=== PATIENT | male | born 1975 | race Caucasian/White ===

== ENCOUNTER → 2018-03-19 13:21 | Outpatient (CLI) | payer BC, SELFPAY ==
--- NOTE | 2018-03-19 13:33 | MR_ITS ---
MR cervical spine wo con, MR 3-d myelogram/MRCP Ordering Physician: Kyler Phipps MD Patient Age: 42 years: Male HISTORY: ITS.REASON: C7 RADICULOPATHY C7 radiculopathy. Left-sided neck pain left arm numbness and left hand 2 months. TECHNIQUE: Sagittal STIR, T1, T2, axial T1 and T2. On 1.5T Siemens wide bore MRI. 3-D MR myelogram image set obtained & performed on MRI workstation. Additional sagittal thin section T2 weighted dataset obtained from this latter acquisition as well (---76 CPT) COMPARISON : No prior studies FINDINGS Cervical vertebral bodies are intact with normal alignment. Facets with normal relationships. Cranial cervical junction is normal. The cervical cord is normal in caliber and signal and there is a generous volume cervical osseous spinal canal The disc spaces are well hydrated & well-maintained throughout.. The neural foramen widely patent with no encroachment. Only note minor disc prominence to left at C5/6.. Mild leftward disc bulge//minor broad-based disc protrusion to the left which only slightly flattens & effaces the thecal sac to the left at C5/6 level, as seen on axial image 39, & 38.,. Unimpressive but noted. No associated foraminal encroachment Otherwise unremarkable MR C-spine A tiny perineural cyst measuring 3 x 4 mm is incidentally noted posterior aspect of the neural foramen right on axial image 44. Incidental observation of no clinical significance . Soft tissues and neck with no significant findings. Mild to moderate posterior cervical nodes noted towards upper C-spine 3-D MR myelogram image set shows satisfactory appearance to the thecal sac. Generous volume thecal sac with no prominent epidural indentation only question very subtle additional upon the anterior left thecal sac at C5/6 level. The initial nerve root sleeves are seen bilaterally and appear symmetric appearing including normal filling of the nerve root sleeves to the left at C5, C6 and C7.. IMPRESSION...... No prominent findings.. Only Minor observation C5-C6: At C5/6 noted disc mild prominence the left, mildly effacing thecal sac to the left. This reflects mild leftward disc bulge, or minor broad-based protrusion to the left which slightly flattened & minimally effaces the thecal sac to the left. Unimpressive but noted. Otherwise basically unremarkable MR C-spine.
== END ==
PROVIDERS: Family Provider Family Medicine; PCP Family Medicine; Visit Provider Internal Medicine Adolescent Medicine
DX: M54.12 Radiculopathy, cervical region (principal)
CPT/HCPCS: 72141; 76376

== ENCOUNTER → 2018-10-12 11:07 | Outpatient (CLI) | payer BC, SELFPAY ==
[2018-10-12 11:12] LABS: Adenovirus F 40/41, stool Not Detected (NotDetected); Campylobacter Not Detected (NotDetected); Clostridium Difficile A/B, PCR Not Detected (NotDetected); Cryptosporidium Not Detected (NotDetected); Cyclospora Cayetanesis Not Detected (NotDetected); Entamoeba histolytica Not Detected (NotDetected); Enteroaggregative E coli Not Detected (NotDetected); Enteropathogenic E coli Not Detected (NotDetected); Enterotoxigenic E coli Not Detected (NotDetected); Giardia lamblia Not Detected (NotDetected); Norovirus Not Detected (NotDetected); Plesimonas Shigalloides, PCR Not Detected (NotDetected); Rotavirus A Not Detected (NotDetected); Salmonella, PCR Not Detected (NotDetected); Sapovirus Not Detected (NotDetected); Shiga-like toxin E coli Not Detected (NotDetected); Shigella Enterovasive E coli Not Detected (NotDetected); Vibrio Cholerae Not Detected (NotDetected); Vibrio, PCR Not Detected (NotDetected); Yersinia Entercolitica, PCR Not Detected (NotDetected)
[2018-10-12 15:36] LABS: Astrovirus Detected (NotDetected)
== END ==
PROVIDERS: PCP Internal Medicine Adolescent Medicine; Visit Provider Internal Medicine Adolescent Medicine
DX: A09 Infectious gastroenteritis and colitis, unspecified (principal); R19.7 Diarrhea, unspecified; R10.9 Unspecified abdominal pain; A08.32 Astrovirus enteritis
CPT/HCPCS: 87507

== ENCOUNTER 2019-02-16 16:00 | Outpatient (RCR) | payer OTHER, SELFPAY ==
--- NOTE | 2019-01-18 16:41 | HMH.PTOPEV ---
PT Outpatient Evaluation Rehab PT Outpatient Evaluation Start: 01/18/19 15:32 Freq: Status: Active Protocol: Document 01/18/19 16:02 PDESEROUX (Rec: 01/18/19 16:41 [email or web address] [id number]) Electronically Signed By Kevan Graham, PT 01/18/19 16:02 Outpatient Therapy Subjective History Subjective History Pt. is a 43 year old male who presents to outpatient PT for complaints of subacute and traumatic bilateral LB P! since 12/29/18 . 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 in his LB. Pt. denies feeling/hearing a pop, but did report 1 incident of P! shooting down his RLE. Pt. denies RLE symptoms since then. Pt. reported the muscle relaxer did not provide symptom relief, but the steroid pack seemed to help. Pt. denies having recent diagnostic imaging nor injections for current pathology. Current medications include Ibuprofen. PMH includes acid reflux. Chief Complaint Pain,Stiff Symptom Type Dull,Other Symptoms Relieved By Rest/Positioning,OTC Meds Symptoms Aggravated By Sitting,Standing,Bending/ Stooping,Twisting,Lifting Prior Functional Limitations None Current Functional Limitations Lifting,Sleeping,Standing, Sitting Symptom Description Constant but Variable Level of pain today (0-10) 1 Pain scale - at its best (0-10) 1 Pain scale - at its worst (0-10) 10 Lumbopelvic Eval Posture Thoracic Spine Posture Standing Position Neutral Lumbar Spine Posture Standing Position Neutral Assistive device Assistive Devices None / NA Gait Observation General Gait Pattern Observation No Deviations/Normal Palapation tenderness bilateral thoracic spinal tenderness No lumbar spinal tenderness Yes paraspinal tenderness Yes buttock tenderness No tenderness over symphysis pubis No Lumbar/Sacral Palpation Findings Tenderness Lumbar/Sacral Palpation Overall Comment grade 2 +TTP to bilateral L3- L5 Accessory Movement L-spine Vertebrae Accessory Movements Central P/A [place],Right P/A that Elicit Symptoms
== END 2019-02-23 13:00 | disposition home or self-care (01) ==
LOC: PT.CARL 16:00
PROVIDERS: Visit Provider Internal Medicine Adolescent Medicine
DX: S39.012S Strain of muscle, fascia and tendon of lower back, sequela (principal)
CPT/HCPCS: 97010; 97012; 97014; 97110; 97163; G0283

== ENCOUNTER → 2019-07-08 15:59 | Outpatient (CLI) | payer OTHER, SELFPAY ==
--- NOTE | 2019-07-08 16:03 | MR_ITS ---
PROCEDURE: MR LUMBAR SPINE WO CON CLINICAL INDICATION: LUMBOSACRAL PAIN Low back pain COMPARISON: SPC[facility]WO MR cervical spine wo con from 03/19/2018 TECHNIQUE: Standard multiplanar multiecho sequences are performed without contrast. 3-D MIP and myelographic images are also rendered and reviewed FINDINGS: There is normal alignment. The spinal cord ends at the L1 level. L1-L2 L2-L3 and L3-L4 have an unremarkable appearance. There is degenerative disc disease at L4-5 with bulging disc and a small broad-based central disc protrusion causing bilateral lateral recess narrowing as well as narrowing of the canal at 10 mm. This protruding disc is very slightly eccentric toward the left. There is moderate bilateral lateral recess and foraminal narrowing with associated facet and ligamentum hypertrophy. The disc abuts both L5 nerve roots slightly greater on the left L5-S1: Unremarkable. IMPRESSION: There is degenerative disc disease at L4-5 with bulging disc and a small broad-based central disc protrusion causing bilateral lateral recess narrowing as well as narrowing of the canal at 10 mm. This protruding disc is very slightly eccentric toward the left. There is moderate bilateral lateral recess and foraminal narrowing with associated facet and ligamentum hypertrophy. The disc abuts both L5 nerve roots slightly greater on the left Dictated by: Subhash Lo MD 07/09/2019 18:44 Electronically signed by Subhash Lo MD in [place] 07/09/2019 18:44
== END ==
PROVIDERS: PCP Nurse Practitioner Family; Visit Provider Nurse Practitioner Family
DX: M54.5 Low back pain (principal)
CPT/HCPCS: 72148; 76376

== ENCOUNTER → 2020-03-17 11:24 | Outpatient (CLI) | payer BC, SELFPAY | PROVIDERS: PCP Internal Medicine Adolescent Medicine; Visit Provider Nurse Practitioner Family | DX: Z20.828 Contact with and (suspected) exposure to other viral communicable diseases (principal); U07.1 COVID-19 | CPT/HCPCS: U0003 ==

== ENCOUNTER 2020-09-25 21:08 | Emergency (ER) | payer BC, SELFPAY ==
[2020-09-25 21:56] VITALS: BP 155/98; PULSE 92; RESP 18; TEMP 36.9; O2SAT 99; BMI 27.3
--- NOTE | 2020-09-25 22:11 | CT_ITS ---
PROCEDURE: CT HEAD/BRAIN WO CON CLINICAL INDICATION: neck numbness tightness Pain, headache COMPARISON: No exams were available for comparison TECHNIQUE: Axial images obtained. All CT scans at the facility use one or more dose reduction, viz: automated exposure control, ma/kV adjustment per patient size (including targeted exams where dose is matched to indication, i.e. head), or iterative reconstruction technique. FINDINGS: No midline shift, mass effect, intracranial hemorrhage, hydrocephalus, or extra-axial fluid collection is evident. The calvarium has an unremarkable appearance. No mastoid effusion. No sinus air-fluid level. IMPRESSION: No acute intracranial finding Dictated by: Subhash Lo MD 09/26/2020 06:27 Subhash Lo MD in [place] 09/26/2020 06:27
--- NOTE | 2020-09-25 22:11 | CT_ITS ---
PROCEDURE: CT CERVICAL SPINE WO CON CLINICAL INDICATION: neck numbness tightness Neck pain, jaw locking a COMPARISON: No exams were available for comparison TECHNIQUE: Axial images obtained with sagittal and coronal reformats. All CT scans at the facility use one or more dose reduction, viz: automated exposure control, ma/kV adjustment per patient size (including targeted exams where dose is matched to indication, i.e. head), or iterative reconstruction technique. Axial spiral CT scanning performed of the cervical spine beginning at the base of the skull and continuing to the upper T-spine. 3-D multiplanar reconstruction with 3-D manipulation of volumetric data set in image rendering was completed by the radiologist and/or technologist with the supervision of the radiologist on independent workstation. FINDINGS: No fracture nor subluxation is evident. Normal prevertebral soft tissues. Facets, neural foramen and vertebral bodies intact and unremarkable. Normal C1/C2 relationships. Apices of lungs are clear with no acute findings. Scattered small nodes are present in the neck. There is straightening of the cervical lordosis nonspecific and may be due to positioning or muscle spasm. IMPRESSION: 1. Straightening of cervical lordosis. 2. No fracture or dislocation. No significant degenerative change or canal stenosis. Dictated by: Subhash Lo MD 09/26/2020 06:30 Subhash Lo MD in [place] 09/26/2020 06:30
[2020-09-25 22:31] LABS: Basophils # 0.1 K/mm3 (0-0.2); Eosinophils # 0.1 K/mm3 (0.0-0.4); Eosinophils % 1.1 % (0.1-12.0); Hematocrit 45.3 % (42.0-52.0); Hemoglobin 14.8 g/dL (14.1-18.0); Lymphocytes # 3.1 K/mm3 (0.7-4.5); Lymphocytes % 28.6 % (10-50); Mean Corpuscular HGB Conc 32.6 g/dL (31.8-35.4); Mean Corpuscular Hemoglobin 28.5 pg (27.0-31.2); Mean Corpuscular Volume 87.6 fl (80-94); Mean Platelet Volume 8.6 fl (7.4-10.4); Monocytes # 0.6 K/mm3 (0.1-1.0); Monocytes % 5.2 % (1.7-9.3); Neutrophils # 6.9 K/mm3 (1.8-7.8); Neutrophils % 64.2 % (37.0-80.0); Platelet Count 278 K/mm3 (142-424); Red Blood Count 5.17 M/mm3 (4.60-6.20); Red Cell Distribution Width 13.3 % (11.5-17.5); White Blood Count 10.8 K/mm3 (4.8-10.8)
[2020-09-25 22:36] LABS: Alanine Aminotransferase 21 U/L (12-78); Albumin Level 5.1 g/dl (3.5-5.0); Albumin/Globulin Ratio 1.6 (1.1-1.8); Alkaline Phosphatase 79 U/L (38-126); Anion Gap 15.4 mEq/L (5-15); Aspartate Amino Transferase 35 U/L (17-59); Bilirubin,Total 0.4 mg/dl (0.2-1.3); Blood Urea Nitrogen 17 mg/dl (9-20); Calcium 9.7 mg/dl (8.4-10.2); Carbon Dioxide 27 mmol/L (22.0-30.0); Chloride 104 mmol/L (98-107); Creatinine Clearance Estimated 137 mL/min (50-200); Estimated Glomerular Filt Rate 106 ml/min (>60); GFR (African American) 128 ML/MIN (>60); Globulin 3.2 g/dL (1.3-3.2); Glucose 107 mg/dl (74-100); Potassium 4.4 mmoL/L (3.5-5.1); Sodium 142 mmol/L (136-145); Total Protein,Serum 8.3 g/dl (6.3-8.2)
--- NOTE | 2020-09-25 22:38 | CT_ITS ---
Procedure: CT ANGIO NECK CLINICAL HISTORY: throat and neck numbness, spasm Headache, pain, neck pain, headache, feels like jaw is locking COMPARISON: CT CT ANGIO HEAD from 09/25/2020 TECHNIQUE: IV Contrast: 100ml Isovue 370 Axial images obtained with sagittal and coronal reformats. All CT scans at the facility use one or more dose reduction, viz: automated exposure control, ma/kV adjustment per patient size (including targeted exams where dose is matched to indication, i.e. head), or iterative reconstruction technique. FINDINGS: CTA neck: Unremarkable appearing aortic arch and great vessels. The carotids and vertebrals have an unremarkable appearance. No stenosis, occlusion, or ulceration. CTA head: No aneurysm, intracranial occlusive changes, AVM, or enhancing lesion. Delayed images show no obvious sinus thrombosis IMPRESSION: Negative CTA of the head and neck. Dictated by: Subhash Lo MD 09/26/2020 09:39 Subhash Lo MD in [place] 09/26/2020 09:39
[2020-09-25 22:43] LABS: C-Reactive Protein 1.1 mg/L (0-4)
[2020-09-25 22:50] LABS: Troponin I < 0.01 ng/ml (0.00-0.034)
[2020-09-25 22:55] LABS: Procalcitonin 0.041 ng/mL (0.0-2.0)
[2020-09-25 22:57] LABS: Erythrocyte Sedimentation Rate 5 mm/hr (0-15)
--- NOTE | 2020-09-25 23:11 | PC.NURSE ---
pt returned from CT scan
[2020-09-25 23:23] VITALS: BP 130/91; PULSE 73; RESP 17; O2SAT 99
[2020-09-25 23:30] VITALS: BP 130/94; PULSE 70
[2020-09-26] VITALS: BP 139/101; PULSE 66; O2SAT 99
--- NOTE | 2020-09-26 00:10 | HMH.EDNEU ---
ED Disposition Clinical Impression: Facial numbness Disposition: Home, Self-Care Condition on Discharge: Good Instructions: DI for High Blood Pressure Additional Instructions: see pcp for follow up and about bp Referrals: Kyler Phipps MD [Primary Care Provider] - - Critical Care Critical Care Time: No Attestation: On 09/25/20, the high probability of a clinically significant, sudden or life threatening deterioration of the following system(s) required my full and direct attention, intervention and personal management. The time I documented below is in addition to time spent performing reported procedures but includes the following listed in this critical care notation. Medical Decision Making - Medical Records Medical records reviewed: Yes: I reviewed the patient's medical records. - Eric Inquiry Pt receiving controlled substance: No Vital Signs: 09/25/20 21:56 Temperature 98.4 F Temperature Source Oral Pulse Rate [Right] 92 H Respiratory Rate 18 Blood Pressure [Left Arm] 155/98 H Blood Pressure Mean [Left Arm] 117 Blood Pressure Source [Left Arm] Automatic Cuff 02 Sat by Pulse Oximetry 99 Oxygen Delivery Method Room Air - Lab Data Lab results reviewed: Yes: I reviewed the patient's lab results. Lab Results 09/25/20 22:15: WBC 10.8, RBC 5.17, Hgb 14.8, Hct 45.3, MCV 87.6, MCH 28.5, MCHC 32.6, RDW 13.3, Plt Count 278, MPV 8.6, Neut % (Auto) 64.2, Lymph % (Auto) 28.6, [place] % (Auto) 5.2, Eos % (Auto) 1.1, Baso % (Auto) 1.0, Neut # (Auto) 6.9, Lymph # (Auto) 3.1, [place] # (Auto) 0.6, Eos # (Auto) 0.1, Baso # (Auto) 0.1, ESR 5 09/25/20 22:15: Sodium 142, Potassium 4.4, Chloride 104, Carbon Dioxide 27, Anion Gap 15.4 H, BUN 17, Creatinine 0.80, Estimated Creat Clear 137, Estimated GFR 106, Est GFR ( Amer) 128, Glucose 107 H, Calcium 9.7, Total Bilirubin 0.4, AST 35, ALT 21, Alkaline Phosphatase 79, Troponin I < 0.01, C-Reactive Protein 1.1, Total Protein 8.3 H, Albumin 5.1 H, Globulin 3.2, Albumin/Globulin Ratio 1.6, Procalcitonin 0.041 Result diagrams: 09/25/20 22:15 09/25/20 22:15 Orders (Tests/Meds): ED MEDICATIONS Generic Name Dose Route Start Last Admin Trade Name Freq PRN Reason Stop Dose Admin Sodium Chloride 1,000 mls @ 999 mls/hr 09/25/20 23:30 09/25/20 23:25 Sod Chlor 0.9% 1000ml Bag IV 09/26/20 00:30 999 mls/hr .Q1H1M JHON Administration Discontinued Medications Generic Name Dose Route Start Last Admin Trade Name Freq PRN Reason Stop Dose Admin Iopamidol 100 ml 09/25/20 23:21 09/25/20 23:22 Iopamidol-370 (76%);100ml Bottle IV 09/25/20 23:22 100 ml ONCE ONE Administration Ketorolac Tromethamine 30 mg 09/25/20 23:25 09/25/20 23:25 Ketorolac 30mg/Ml Vial IV 09/25/20 23:26 30 mg ONCE ONE Administration Sodium Chloride 40 ml 09/25/20 23:21 09/25/20 23:22 0.9 % Sodium Chloride 50 Ml Vial IV 09/25/20 23:22 40 ml ONCE ONE Administration Sodium Chloride 10 ml 09/25/20 23:21 09/25/20 23:22 Sodium Chloride 0.9% 10ml Syr (Rad Only) IV 09/25/20 23:22 10 ml ONCE ONE Administration ORDERS Category Date Time Status CT angio head Stat Cat Scan 09/25/20 22:[address] angio neck Stat Cat Scan 09/25/20 22:[address] cervical spine wo con Stat Cat Scan 09/25/20 22:[address] head/brain wo con Stat Cat Scan 09/25/20 22:11 Taken Troponin I Q3H Lab 09/26/20 01:15 Ordered Troponin I Q3H Lab 09/26/20 04:15 Ordered - CT Data CT Scan: Head, C-Spine, Other (cta head/neck) Time Received: 00:[address] Reviewed: Yes: I have viewed the radiologist's interpretation Preliminary Findings: Normal/NAD - Reevaluation(s) Time: 00:16 Reevaluation #1: at baseline Medical Decision Narrative: uncertain as to etiology but at baseline with nl ed eval Neuro HPI - General Chief Complaint: Neuro Symptoms/Deficit Stated Complaint: throat closing up,numbless L Arm Castro Time Seen by Provider: 09/25/20 23:00 Mode o
[2020-09-26 00:29] VITALS: BP 132/94; PULSE 83; RESP 16; TEMP 36.7; O2SAT 100
== END 2020-09-26 00:32 | disposition home or self-care (01) ==
PROVIDERS: Emergency Provider Emergency Medicine; PCP Internal Medicine Adolescent Medicine
DX: M62.838 Other muscle spasm (principal); R51.9 Headache, unspecified; R20.2 Paresthesia of skin
CPT/HCPCS: 70450; 70496; 70498; 72125; 80053; 84145; 84484; 85025; 85651; 86140; 96374; 96375; 99283; Q9967

== ENCOUNTER → 2020-10-19 07:52 | Outpatient (CLI) | payer BC, SELFPAY | PROVIDERS: Visit Provider Internal Medicine Gastroenterology | DX: Z01.812 Encounter for preprocedural laboratory examination (principal); Z11.52 Encounter for screening for COVID-19; Z13.810 Encounter for screening for upper gastrointestinal disorder | CPT/HCPCS: U0003 ==

== ENCOUNTER 2020-10-20 08:00 | Day surgery (SDC) | payer BC, SELFPAY ==
[2020-10-18 16:04] VITALS: BMI 25.1
[2020-10-20] VITALS (8 sets, daily range): BP systolic 99–136; BP diastolic 66–90; PULSE 58–84; RESP 18; TEMP 36.4–36.5; O2SAT 97–100
--- NOTE | 2020-10-20 09:21 | P.PN_ITS ---
[facility] Anesthesia Checklist - Structural Data Admitted From: Home Planned Operative Procedure/s: egd Consent for Planned Operative Procedure(s) Verified: Yes - Airway Assessment C-Spine Mobility Assessed: Yes TMJ Mobility Assessed: Yes Dentition: Good Dentition - Neurological Assessment Level of Consciousness: Awake, Alert, Appropriate - Anesthesia Plan Anesthesia Risk discussed: Yes Anesthesia Plan: Verified ASA Class: II Anesthesia Type: MAC [facility] History I have reviewed the patient's past medical history: Yes Medical History: Denies:: Cancer, Diabetes Mellitus Type 1, Diabetes Mellitus Type 2, Internal Pacemaker, MRSA, Seizures *Have you ever received a pneumonia vaccine?: No *Have you received a flu vaccine this season?: No Anesthesia experience/problems:: none Other Surgeries: No: Pacemaker Amputation: No - *Social History Last grade of school completed: High school graduate Smoking Status: Current every day smoker Tobacco Type: cigarettes # Packs/Day (cigarettes): 1 Alcohol Intake: current Alcohol Intake Frequency:: a few times a month Substance Use Type: denies use *Occupational Status:: employed Housing: house Household Members: significant other, family *Travel in the last 8 weeks: None Family Hx:: No significant family history
--- NOTE | 2020-10-20 09:38 | P.PCN_ITS ---
[facility] Procedure Note Procedure Note:: Upper Endoscopy Procedure Report: Esophagogastroduodenoscopy with cold biopsies and TTS balloon dilation Endoscopost: Jared Garcia II, MD Referring Physician: YOGI Kirk Date of Procedure: October 20, 2020 Equipment: Olympus GIF 190 standard upper endoscope Sedation: MAC sedation Indications: Mr. Lee is a 44-year-old gentleman with globus sensation and dysphagia. He reports some epigastric abdominal discomfort, dyspepsia, belching and bloating. He does state that omeprazole controls his reflux. He has had GERD for almost 20 years and has been on and off antireflux medication/PPI therapy. He reports no nausea but does get some early satiety. He reports dysphagia to primarily breads with some hard swallowing. This has worsened over the last year. He reports regular bowel function. This is his first upper endoscopy Procedure: Prior to the procedure, a history and physical exam was performed, and patient's medications and allergies were reviewed. The risks, benefits and alternatives of the sedation and procedure were discussed with the patient. All questions were answered and informed consent was obtained. The patient was brought to the procedure room. Patient identification and proposed procedure were verified by the physician and the nurse. The patient was placed in a left lateral decubitus position and the scope was passed under direct vision. Throughout the procedure, the patient's blood pressure, pulse, and oxygen saturations were monitored continuously. The upper GI endoscopy was accomplished without difficulty. The patient tolerated the procedure well. Findings: The scope was passed directly into the upper esophagus and advanced to the third portion of the duodenum. The post bulbar duodenum and duodenal bulb were normal with normal mucosa and conniventes. The scope was withdrawn through a normal duodenal bulb and pylorus into the stomach. There was some linear reactive gastropathy of the antrum and body of the stomach. The remainder of the fundus of the stomach was grossly normal. Upon retroflexion there was no hiatal hernia. 2 biopsies were taken in the antrum and along the lesser curvature for histology to rule out gastritis and/or H pylori. The scope was then withdrawn into the esophagus. There was a serrated Z-line and biopsies were taken from the GE junction. There was no evidence of reflux esophagitis, Schatzki's ring or Jiang's esophagus. There were strong tertiary contractions and evidence of moderate esophageal dysmotility. The entire esophagus was dilated to 60 [place]er/20 mm with a TTS hydrostatic balloon. There was some resistance at the cricopharyngeus. The remainder of the esophageal mucosa was normal. Impression: 1. Cricopharyngeal spasm status post dilation to 20 mm 2. Nonerosive GERD with moderate esophageal dysmotility 3. Mild linear reactive gastropathy Plan: I will follow-up the biopsies. 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 I will discuss additional dietary measures and treatment options.
== END 2020-10-20 10:52 | disposition home or self-care (01) ==
LOC: OUTP 08:02
PROVIDERS: PCP Internal Medicine Adolescent Medicine; Visit Provider Internal Medicine Gastroenterology
PROC: 0DJ08ZZ Inspection of Upper Intestinal Tract, Via Natural or Artificial Opening Endoscopic (ICD-10-PCS; CPT 43235; principal; 2020-10-20 09:00)
DX: K21.9 Gastro-esophageal reflux disease without esophagitis (principal); K22.4 Dyskinesia of esophagus; K31.9 Disease of stomach and duodenum, unspecified; J39.2 Other diseases of pharynx; F41.9 Anxiety disorder, unspecified; Z72.0 Tobacco use; Z79.899 Other long term (current) drug therapy
CPT/HCPCS: 43239; 43249; C1726

== ENCOUNTER → 2021-02-14 12:39 | Outpatient (CLI) | payer BC, SELFPAY | PROVIDERS: Visit Provider Internal Medicine Gastroenterology | DX: Z01.812 Encounter for preprocedural laboratory examination (principal); Z20.822 Contact with and (suspected) exposure to COVID-19; Z12.11 Encounter for screening for malignant neoplasm of colon | CPT/HCPCS: U0003 ==

== ENCOUNTER 2021-02-16 09:53 | Day surgery (SDC) | payer BC, SELFPAY ==
[2021-02-13 12:03] VITALS: BMI 24.3
[2021-02-16 10:07] VITALS: BP 130/79; PULSE 104; RESP 18; TEMP 37.6; O2SAT 98
[2021-02-16 10:41] VITALS: O2SAT 99
--- NOTE | 2021-02-16 10:44 | P.PN_ITS ---
[facility] Anesthesia Checklist - Structural Data Admitted From: Home Planned Operative Procedure/s: colonoscopy Consent for Planned Operative Procedure(s) Verified: Yes - Airway Assessment C-Spine Mobility Assessed: Yes TMJ Mobility Assessed: Yes Dentition: Good Dentition - Neurological Assessment Level of Consciousness: Awake, Alert, Appropriate - Anesthesia Plan Anesthesia Risk discussed: Yes Anesthesia Plan: Verified ASA Class: II Anesthesia Type: MAC [facility] History I have reviewed the patient's past medical history: Yes Medical History: Denies:: Cancer, Diabetes Mellitus Type 1, Diabetes Mellitus Type 2, Internal Pacemaker, MRSA, Seizures *Have you ever received a pneumonia vaccine?: No *Have you received a flu vaccine this season?: No Anesthesia experience/problems:: none Other Surgeries: No: Pacemaker Amputation: No - *Social History Last grade of school completed: High school graduate Smoking Status: Never smoker Tobacco Type: cigarettes # Packs/Day (cigarettes): 1 Alcohol Intake: current Alcohol Intake Frequency:: a few times a month Substance Use Type: denies use *Occupational Status:: employed Housing: house Household Members: significant other, family *Travel in the last 8 weeks: None Family Hx:: No significant family history
--- NOTE | 2021-02-16 11:08 | P.PCN_ITS ---
[facility] Procedure Note Procedure Note:: Colonoscopy Procedure Report: Colonoscopy Endoscopist: Jared Garcia II, MD Referring physician: YOGI Kirk Date of Procedure: February 16, 2021 Equipment: Olympus 190 variable stiffness pediatric colonoscope Sedation: MAC sedation Indication: Mr. Lee is a 45-year-old gentleman who is here for high risk screening colonoscopy secondary to family history. His maternal uncle had colon cancer at the age of 49. The patient does have some intermittent bloating and obstipation. He reports no rectal bleeding, abdominal pain, weight loss or change in bowel habits. Procedure: Prior to the procedure, a history and physical exam was performed, and patient's medications and allergies were reviewed. The risks, benefits and alternatives of the sedation and procedure were discussed with the patient. All questions were answered and informed consent was obtained. The patient was brought to the procedure room. Patient identification and proposed procedure were verified by the physician and the nurse. The patient was placed in a left lateral decubitus position and the scope was passed under direct vision. Throughout the procedure, the patient's blood pressure, pulse, and oxygen saturations were monitored continuously. The colonoscopy was accomplished without difficulty. The patient tolerated the procedure well. Findings: On digital rectal examination there was normal rectal tone. There were no external hemorrhoids. The prostate was 2+, smooth, soft, symmetric without nodules. The colonoscope was introduced through the anal canal to the rectum and advanced to the cecum. The ileocecal valve and appendiceal orifice were identified. The scope was advanced a short distance into the ileum which appeared grossly normal. The scope was then withdrawn into the colon. The cecum, ascending, transverse, descending, sigmoid and rectum were grossly normal. There were no mucosal abnormalities identified. Upon retroflexion within the rectum there were grade 1-2 internal hemorrhoids.The preparation was excellent throughout with Bertha Preparation Score of nine. The cecal time was 11 minutes. Impression: 1. Normal colonoscopy with intubation of the terminal ileum 2. Grade 1-2 internal hemorrhoids Plan: The patient will not require surveillance colonoscopy again for 10 years. I would continue fiber supplementation on a maintenance basis.
[2021-02-16 11:10] VITALS: BP 112/98; PULSE 83; RESP 18; TEMP 36.6; O2SAT 94
[2021-02-16 11:20] VITALS: BP 121/53; PULSE 74; RESP 18; O2SAT 97
[2021-02-16 11:30] VITALS: BP 150/81; PULSE 80; RESP 18; O2SAT 99
[2021-02-16 11:52] VITALS: BP 104/69; PULSE 66; RESP 18; O2SAT 99
== END 2021-02-16 11:57 | disposition home or self-care (01) ==
LOC: OUTP 09:54
PROVIDERS: PCP Internal Medicine Adolescent Medicine; Visit Provider Internal Medicine Gastroenterology
PROC: 0DJD8ZZ Inspection of Lower Intestinal Tract, Via Natural or Artificial Opening Endoscopic (ICD-10-PCS; CPT 45378; principal; 2021-02-16 11:30)
DX: Z12.11 Encounter for screening for malignant neoplasm of colon (principal); K64.0 First degree hemorrhoids; Z79.899 Other long term (current) drug therapy; K21.9 Gastro-esophageal reflux disease without esophagitis
CPT/HCPCS: 45378

== ENCOUNTER → 2021-12-31 07:28 | Outpatient (CLI) | payer BC, SELFPAY ==
--- NOTE | 2021-12-31 07:34 | XR_ITS ---
FINAL REPORT CLINICAL HISTORY: HEMATURIA FINDINGS: A PA view of the chest was obtained. The cardiac and mediastinal silhouettes are within normal limits. The lungs are clear. There is no free air beneath the diaphragm. Upright and supine views of the abdomen reveal a nonspecific bowel gas pattern but is nonobstructive. There is no evidence of small bowel obstruction. There is a moderate amount of retained stool. The kidneys are partially obscured by stool and gas. There may be a left renal stone. Pelvic calcifications are likely phleboliths but a distal ureteral stone is not excluded. No acute osseous abnormalities identified. IMPRESSION: Nonspecific but nonobstructive bowel gas pattern. Moderate stool. Possible left renal stone. Reviewed, Interpreted and Dictated by Lolis Peoples MD Transcribed by Elida Perez Authenticated and [facility]
== END ==
LOC: RAD 07:31
PROVIDERS: PCP Internal Medicine Adolescent Medicine; Visit Provider Nurse Practitioner Family
DX: R31.9 Hematuria, unspecified (principal)
CPT/HCPCS: 74021

== ENCOUNTER 2022-07-28 10:34 | Emergency (ER) | payer BC, SELFPAY ==
[2022-07-28 10:38] VITALS: BP 156/93; PULSE 97; O2SAT 98
[2022-07-28 10:45] VITALS: BP 156/93; PULSE 97; RESP 14; TEMP 37.1; O2SAT 98; BMI 23.6
--- NOTE | 2022-07-28 10:47 | CT_ITS ---
PROCEDURE INFORMATION: Exam: CT Abdomen And Pelvis Without Contrast Exam date and time: 07/28/2022 11:09 AM Age: 46 years old Clinical indication: Abdominal pain; Flank; Right lower quadrant (rlq); Additional info: Right flank pain TECHNIQUE: Imaging protocol: Computed tomography of the abdomen and pelvis without contrast. Radiation optimization: All CT scans at this facility use at least one of these dose optimization techniques: automated exposure control; mA and/or kV adjustment per patient size (includes targeted exams where dose is matched to clinical indication); or iterative reconstruction. Other protocol: This patient has received 0 known CTs and 0 known cardiac nuclear medicine studies in the 12 months prior to the current study. COMPARISON: CR XR ACUTE ABDOMEN SERIES 12/31/2021 7:35 AM FINDINGS: Liver: Normal. No mass. Gallbladder and bile ducts: Normal. No calcified stones. No ductal dilation. Pancreas: Normal. No ductal dilation. Spleen: Calcified splenic granulomata. Adrenal glands: Normal. No mass. Kidneys and ureters: 0.5 cm right distal ureteral calculus with proximal hydroureter. No left nephroureterolithiasis or hydroureter. Stomach and bowel: Unremarkable. No obstruction. No mucosal thickening. Appendix: No evidence of appendicitis. Intraperitoneal space: Unremarkable. No free air. No significant fluid collection. Vasculature: Unremarkable. No abdominal aortic aneurysm. Lymph nodes: Unremarkable. No enlarged lymph nodes. Urinary bladder: Unremarkable as visualized. Reproductive: Unremarkable as visualized. Bones/joints: Unremarkable. No acute fracture. Soft tissues: Unremarkable. IMPRESSION: Right distal ureteral calculus with proximal hydroureter.
--- NOTE | 2022-07-28 10:50 | HMH.EDABDPAI ---
Discharge Plan Disposition Patient Disposition: Home, Self-Care Condition: Good Prescriptions Prescriptions: New ketorolac 10 mg tablet 10 mg PO Q8H Qty: 14 0RF ondansetron 4 mg tablet,disintegrating 4 mg PO Q8H 3 Days Qty: 10 0RF tamsulosin [Flomax] 0.4 mg capsule 0.4 mg PO DAILY Qty: 7 0RF No Action buspirone 15 MG tablet 15 mg PO BID omeprazole 20 MG tablet,delayed release (DR/EC) 20 mg PO DAILY cephalexin 750 MG capsule 750 mg PO Q12H Referrals Follow up/Referrals: Kyler Phipps MD [Primary Care Provider] - See instructions Amadou Gomes MD [Staff Physician] - See instructions Clinical Impressions Clinical Impression: Kidney stone on right side Instructions Patient Instructions: DI for Acute Abdominal Pain Print Language Print Language: [place] Discharge ED Provider: Elvis Bell Abdominal Pain HPI General Chief Complaint: Abdominal Pain Stated Complaint: Right-sided abdominal pain Time Seen by Provider: 07/28/22 11:42 Mode of Arrival: Ambulatory Source of Information: Patient Limitations: No Limitations Description of Symptoms (Recalled from ER Triage Doc. by RN): Pt reports new onset right flank/abd pain this am, severe then and went to his knees, denies dysuria, abd surgeries, only GERD w ppi Rx History of Present Illness HPI narrative: Patient presents to the emergency department abdominal pain which started few hours prior to arrival. He states that when he woke up he started having pain. He states that the pain is nonradiating. Does describe some associated nausea. Denies any fever, chills, cough, congestion, vomiting, diarrhea, constipation, dysuria, hematuria or frequency. Denies any previous history of similar symptoms. Denies any abdominal surgeries in the past Related Data Home Medications Medication Instructions Recorded Confirmed omeprazole 20 mg tablet,delayed 20 mg PO DAILY GERD 09/25/20 02/16/21 release buspirone 15 mg tablet 15 mg PO BID Anxiety 10/20/20 02/16/21 cephalexin 750 mg capsule 750 mg PO Q12H celluitis 02/16/21 02/16/21 Previous Rx's Medication Instructions Recorded ketorolac 10 mg tablet 10 mg PO Q8H pain #14 tabs 07/28/22 ondansetron 4 mg disintegrating 4 mg PO Q8H nausea and vomiting 3 07/28/22 tablet days #10 tabs tamsulosin 0.4 mg capsule (Flomax) 0.4 mg PO DAILY #7 caps 07/28/22 Allergies Allergy/AdvReac Type Severity Reaction Status Date / Time No Known Allergies Allergy Verified 02/16/21 10:06 [facility] Disclaimer: The information contained in this section may have been updated after the patient was seen, as this information can be updated by other users. 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: Yes ROS Obtained: Yes All systems reviewed & no additional complaints except as documented Gastrointestinal Gastrointestingal: Reports system reviewed and no additional complaints, except as documented and abdominal pain Physical Exam General General appearance: alert and in no apparent distress Head Head exam: atraumatic and normocephalic Eye Eye exam: Present normal appearance, PERRL and EOMI Chest Chest inspection: Present normal inspection Respiratory Respiratory exam: Present normal lung sounds bilaterally Cardiovascular Cardiovascular exam: Present regular rate, normal rhythm and normal heart sounds Abdominal Exam Abdominal exam: Present soft and tenderness (Right upper and right lower quadrant abdominal tenderness with guarding. No rebound. Normal bowel sounds) Comment: Reproducible right flank tenderness with palpation and percussion Extremities Exam Extremities exam: Present normal inspection Neurological Exam Neurological e
--- NOTE | 2022-07-28 10:57 | PC.NURSE ---
pt ambulated to restroom
[2022-07-28 11:00] LABS: Basophils # 0.2 K/mm3 (0-0.2); Basophils % 1.5 % (0.1-2.0); Eosinophils # 0.1 K/mm3 (0.0-0.4); Hemoglobin 15.6 g/dL (14.1-18.0); Lymphocytes # 2.6 K/mm3 (0.7-4.5); Lymphocytes % 25.2 % (10-50); Mean Corpuscular HGB Conc 33.1 g/dL (31.8-35.4); Mean Corpuscular Hemoglobin 29.9 pg (27.0-31.2); Mean Corpuscular Volume 90.3 fl (80-94); Monocytes # 0.6 K/mm3 (0.1-1.0); Monocytes % 5.6 % (1.7-9.3); Neutrophils # 6.9 K/mm3 (1.8-7.8); Neutrophils % 66.8 % (37.0-80.0); Platelet Count 262 K/mm3 (142-424); Red Blood Count 5.21 M/mm3 (4.60-6.20); Red Cell Distribution Width 13.5 % (11.5-17.5); White Blood Count 10.3 K/mm3 (4.8-10.8)
[2022-07-28 11:04] LABS: Microscopic, Urine URINE MICROSCOPIC (MICROSCOPIC)
[2022-07-28 11:06] LABS: Appearance,Urine CLEAR (Clear); Bilirubin,Urine Negative (Negative); Blood, Urine 1+ (Negative); Color,Urine YELLOW (Yellow); Glucose,Urine (UA) Negative (Negative); Ketones,Urine Negative (Negative); Leukocyte Esterase,Urine Negative (Negative); Nitrate,Urine Negative (Negative); Protein,Urine Negative (Negative); Specific Gravity, Urine 1.025 (1.005-1.030); Urobilinogen,Urine 0.2 EU/dl (0.2)
[2022-07-28 11:06] LABS: Chloride 108 mmol/L (98-107); Potassium 3.6 mmoL/L (3.5-5.1); Sodium 143 mmol/L (136-145)
[2022-07-28 11:09] LABS: Alanine Aminotransferase 23 U/L (12-78); Albumin Level 4.8 g/dl (3.5-5.0); Albumin/Globulin Ratio 1.7 (1.1-1.8); Alkaline Phosphatase 66 U/L (38-126); Anion Gap 11.6 mEq/L (5-15); Aspartate Amino Transferase 27 U/L (17-59); Bilirubin,Total 0.6 mg/dl (0.2-1.3); Blood Urea Nitrogen 20 mg/dl (9-20); Calcium 9.1 mg/dl (8.4-10.2); Carbon Dioxide 27 mmol/L (22.0-30.0); Creatinine Clearance Estimated 96 mL/min (50-200); Estimated Glomerular Filt Rate 81 ml/min (>60); GFR (African American) 98 ML/MIN (>60); Globulin 2.9 g/dL (1.3-3.2); Glucose 126 mg/dl (74-100); Lipase 62 U/L (23-300); Total Protein,Serum 7.7 g/dl (6.3-8.2)
--- NOTE | 2022-07-28 11:13 | PC.NURSE ---
pt back from rad, no needs voiced at this time.
[2022-07-28 11:22] LABS: Bacteria,Urine Trace /lpf; Mucus,Urine Trace /lpf; Squamous Epithelial Cell,Urine Occasional #/hpf (0-5)
--- NOTE | 2022-07-28 11:33 | PC.NURSE ---
er at bedside
--- NOTE | 2022-07-28 11:44 | PC.NURSE ---
ER AT BEDSIDE
[2022-07-28 12:01] VITALS: BP 119/74; PULSE 71; RESP 18; TEMP 37.1; O2SAT 100
== END 2022-07-28 12:02 | disposition home or self-care (01) ==
PROVIDERS: Emergency Provider Emergency Medicine; PCP Internal Medicine Adolescent Medicine
DX: N20.0 Calculus of kidney (principal)
CPT/HCPCS: 74176; 80053; 81001; 83690; 85025; 96361; 96374; 96375; 99285; J2405

== ENCOUNTER 2022-09-08 10:16 | Emergency (ER) | payer BC, SELFPAY ==
[2022-09-08] VITALS (9 sets, daily range): BP systolic 99–151; BP diastolic 55–103; PULSE 64–83; RESP 12–18; TEMP 36.7–36.9; O2SAT 98–100; BMI 22.8
--- NOTE | 2022-09-08 10:40 | CT_ITS ---
PROCEDURE INFORMATION: Exam: CT Abdomen And Pelvis Without Contrast Exam date and time: 09/08/2022 10:55 AM Age: 46 years old Clinical indication: Abdominal pain; Flank; Right; Additional info: R/O renal calculi, right flank pain, pmhx same TECHNIQUE: Imaging protocol: Computed tomography of the abdomen and pelvis without contrast. Radiation optimization: All CT scans at this facility use at least one of these dose optimization techniques: automated exposure control; mA and/or kV adjustment per patient size (includes targeted exams where dose is matched to clinical indication); or iterative reconstruction. REPORTING DATA: Count of CT and Cardiac NM exams in prior 12 months: This patient has received [address] and 0 known cardiac nuclear medicine studies in the 12 months prior to the current study. COMPARISON: CT ABDOMEN PELVIS WO CON 07/28/2022 11:09 AM FINDINGS: Liver: Normal. No mass. Gallbladder and bile ducts: Normal. No calcified stones. No ductal dilation. Pancreas: Normal. No ductal dilation. Spleen: Normal. No splenomegaly. Adrenal glands: Normal. No mass. Kidneys and ureters: Moderate right obstructive uropathy with calculus at the ureterovesical junction measuring 6 x 4 mm. No left hydronephrosis. Stomach and bowel: Unremarkable. No obstruction. No mucosal thickening. Appendix: No evidence of appendicitis. Intraperitoneal space: Unremarkable. No free air. No significant fluid collection. Vasculature: Unremarkable. No abdominal aortic aneurysm. Lymph nodes: Unremarkable. No enlarged lymph nodes. Urinary bladder: Unremarkable as visualized. Reproductive: Unremarkable as visualized. Bones/joints: Unremarkable. No acute fracture. Soft tissues: Unremarkable. IMPRESSION: Moderate right obstructive uropathy with calculus at the ureterovesical junction measuring 6 x 4 mm.
[2022-09-08 10:58] LABS: Basophils # 0.1 K/mm3 (0-0.2); Basophils % 0.8 % (0.1-2.0); Eosinophils % 0.3 % (0.1-12.0); Hematocrit 47.1 % (42.0-52.0); Hemoglobin 15.1 g/dL (14.1-18.0); Lymphocytes # 1.7 K/mm3 (0.7-4.5); Lymphocytes % 12.5 % (10-50); Mean Corpuscular HGB Conc 32.1 g/dL (31.8-35.4); Mean Corpuscular Hemoglobin 29.4 pg (27.0-31.2); Mean Corpuscular Volume 91.7 fl (80-94); Mean Platelet Volume 9.1 fl (7.4-10.4); Monocytes # 0.8 K/mm3 (0.1-1.0); Monocytes % 5.8 % (1.7-9.3); Neutrophils # 10.9 K/mm3 (1.8-7.8); Neutrophils % 80.7 % (37.0-80.0); Platelet Count 320 K/mm3 (142-424); Red Blood Count 5.14 M/mm3 (4.60-6.20); Red Cell Distribution Width 13.2 % (11.5-17.5); White Blood Count 13.5 K/mm3 (4.8-10.8)
--- NOTE | 2022-09-08 11:00 | PC.NURSE ---
pt back from rad. call light in reach. pt advised to provide us when able.
[2022-09-08 11:10] LABS: Chloride 101 mmol/L (98-107); Sodium 137 mmol/L (136-145)
[2022-09-08 11:11] LABS: Potassium 3.4 mmoL/L (3.5-5.1)
[2022-09-08 11:13] LABS: Alanine Aminotransferase 22 U/L (12-78); Albumin/Globulin Ratio 1.6 (1.1-1.8); Alkaline Phosphatase 75 U/L (38-126); Anion Gap 13.4 mEq/L (5-15); Aspartate Amino Transferase 32 U/L (17-59); Blood Urea Nitrogen 20 mg/dl (9-20); Calcium 9.4 mg/dl (8.4-10.2); Carbon Dioxide 26 mmol/L (22.0-30.0); Creatinine Clearance Estimated 84 mL/min (50-200); Estimated Glomerular Filt Rate 72 ml/min (>60); GFR (African American) 88 ML/MIN (>60); Globulin 3.1 g/dL (1.3-3.2); Glucose 111 mg/dl (74-100); Lipase 72 U/L (23-300); Total Protein,Serum 8.1 g/dl (6.3-8.2)
[2022-09-08 11:45] LABS: Microscopic, Urine URINE MICROSCOPIC (MICROSCOPIC)
[2022-09-08 11:55] LABS: Appearance,Urine CLEAR (Clear); Bilirubin,Urine Negative (Negative); Blood, Urine 2+ (Negative); Color,Urine YELLOW (Yellow); Glucose,Urine (UA) Negative (Negative); Ketones,Urine 1+ (Negative); Leukocyte Esterase,Urine Negative (Negative); Nitrate,Urine Negative (Negative); PH,Urine 7.5 (5.0-8.5); Protein,Urine Negative (Negative); Urobilinogen,Urine 0.2 EU/dl (0.2)
[2022-09-08 12:33] LABS: RBC,Urine Occasional #/hpf (0-3); Squamous Epithelial Cell,Urine Occasional #/hpf (0-5); WBC,Urine Occasional #/hpf (0-3)
--- NOTE | 2022-09-08 13:37 | [facility].EDGENADL ---
Discharge Plan Disposition Patient Disposition: Home, Self-Care Condition: Good Prescriptions Prescriptions: New ketorolac 10 mg tablet 10 mg PO Q8H 5 Days Qty: 15 0RF tamsulosin [Flomax] 0.4 mg capsule 0.4 mg PO Q24H Qty: 14 0RF ondansetron [ondansetron] 4 mg tablet,disintegrating 4 mg PO TIDP PRN (Reason: Nausea) Qty: 10 0RF No Action buspirone 15 MG tablet 15 mg PO BID ketorolac 10 mg tablet 10 mg PO Q8H Qty: 14 0RF ondansetron 4 mg tablet,disintegrating 4 mg PO Q8H 3 Days Qty: 10 0RF tamsulosin [Flomax] 0.4 mg capsule 0.4 mg PO DAILY Qty: 7 0RF omeprazole 20 MG tablet,delayed release (DR/EC) 20 mg PO DAILY cephalexin 750 MG capsule 750 mg PO Q12H Referrals Follow up/Referrals: Taylor Reid [Primary Care Provider] - See instructions Amadou Gomes MD [Staff Physician] - See instructions Amadou Gomes MD [Referring] - See instructions Clinical Impressions Clinical Impression: Calculus of kidney Instructions Patient Instructions: DI for Kidney Stones Discharge ED Provider: Hiram Friedman General Adult HPI General Chief complaint: Abdominal Pain Stated complaint: possible kidney stones, right side pain Time Seen by Provider: 09/08/22 10:20 Mode of Arrival: Ambulatory Source of Information: Patient Limitations: No Limitations Description of Symptoms (Recalled from ER Triage Doc. by RN): Pt c/o sudden onset Right flank pain and PMHx similar w stones History of Present Illness HPI narrative: Patient is a 46-year-old male with a past medical history of kidney stone who presents with right-sided flank pain. He says that he was seen 5 weeks ago for similar symptoms but they self resolved after a couple of days. He says that he this morning everything was normal until he got a cute onset of right-sided flank pain. He said that he felt a little nauseous. Denies any fever or chills. Denies any dysuria. Has not noticed any hematuria. Denies any abdominal pain. Related Data Home Medications Medication Instructions Recorded Confirmed omeprazole 20 mg tablet,delayed 20 mg PO DAILY GERD 09/25/20 02/16/21 release buspirone 15 mg tablet 15 mg PO BID Anxiety 10/20/20 02/16/21 cephalexin 750 mg capsule 750 mg PO Q12H celluitis 02/16/21 02/16/21 Previous Rx's Medication Instructions Recorded ketorolac 10 mg tablet 10 mg PO Q8H pain #14 tabs 07/28/22 ondansetron 4 mg disintegrating 4 mg PO Q8H nausea and vomiting 3 07/28/22 tablet days #10 tabs tamsulosin 0.4 mg capsule (Flomax) 0.4 mg PO DAILY #7 caps 07/28/22 ketorolac 10 mg tablet 10 mg PO Q8H 5 days #15 tabs 09/08/22 ondansetron 4 mg disintegrating 4 mg PO TIDP PRN Nausea #10 tabs 09/08/22 tablet tamsulosin 0.4 mg capsule (Flomax) 0.4 mg PO Q24H #14 caps 09/08/22 Allergies Allergy/AdvReac Type Severity Reaction Status Date / Time No Known Allergies Allergy Verified 02/16/21 10:06 [facility] Disclaimer: The information contained in this section may have been updated after the patient was seen, as this information can be updated by other users. 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
== END 2022-09-08 13:35 | disposition home or self-care (01) ==
PROVIDERS: Emergency Provider Student in an Organized Health Care Education/Training Program; PCP Nurse Practitioner Family
DX: N20.2 Calculus of kidney with calculus of ureter (principal); N13.9 Obstructive and reflux uropathy, unspecified
CPT/HCPCS: 74176; 80053; 81001; 83690; 85025; 96360; 96374; 96375; 99284; 99285; J2405